=== PATIENT | male | born 1990 | race Two or more races ===

== ENCOUNTER → 2017-02-16 | Outpatient (CLI) | payer OTHER, SELFPAY ==
[~2017-02-16] MED LIST: ULTR50TA8 PO
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
--- NOTE | 2017-02-17 06:44 | REP ---
Lumbar spine three views: There is questionably a fracture of the L1 right transverse process. This could be artifact from superimposed bowel gas. Correlation with clinical point tenderness is recommended. Vertebral body heights, interspacing alignment are normal. There is no spondylolysis lysis or spondylolisthesis. The pedicles, facets and sacroiliac articulations are unremarkable. Impression: Questionable L1 right transverse process fracture versus artifact from superimposed bowel gas. Correlate with clinical point tenderness. CT might be considered for confirmation depending on clinical findings. Signed by Uriel Spangler MD 02/17/2017 06:36 A
== END ==
LOC: M LRY 19:26
PROVIDERS: ATTEND Physician Assistant
DX: M41.24 Other idiopathic scoliosis, thoracic region (principal)

== ENCOUNTER 2017-02-17 12:40 | Emergency (ER) | payer OTHER ==
[~2017-02-17] VITALS: Ht 180.3 cm; Wt 97.8 kg
[2017-02-17] MEDS ORDERED: PERCOCET 5MG/325MG TAB PO ONE (13:30)
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
--- NOTE | 2017-02-17 14:47 | REP ---
CT LUMBAR SPINE WITHOUT CONTRAST: HISTORY: Headache. There is no disc bulge or herniation at the L1-2 through L3-4 and L5-S1 levels. The nerves exit the neural foramina without compression. A diffuse disc bulge is present at the L4-5 level. This abuts the thecal sac. The L4 nerves exit the neural foramina without compression. Intervertebral discs and vertebral bodies are normal in height. There is no fracture or subluxation. IMPRESSION: Diffuse disc bulge at the L4-5 level. This abuts the thecal sac. Signed by Laureano Choi MD 02/17/2017 02:54 P
[2017-02-17] MEDS ORDERED: ULTR50TA8 PO (15:05)
[2017-02-17 15:22] VITALS: BP 130/63
== END 2017-02-17 15:33 | disposition home or self-care (01) ==
LOC: MERGE 12:40 → M ED 12:40
DX: S06.0X0A Concussion without loss of consciousness, initial encounter (principal); S13.4XXA Sprain of ligaments of cervical spine, initial encounter; S33.5XXA Sprain of ligaments of lumbar spine, initial encounter; V43.62XA Car passenger injured in collision with other type car in traffic accident, initial encounter; Y92.410 Unspecified street and highway as the place of occurrence of the external cause; Y99.9 Unspecified external cause status; Y93.9 Activity, unspecified